=== PATIENT | female | born 1975 | race Caucasian/White ===

== ENCOUNTER 2023-01-03 03:51 | Day surgery (SDC) | payer OTHER ==
[2023-01-01 10:45] VITALS: BMI 27.3
[2023-01-03] MEDS ORDERED: BUPIVACAINE HCL/PF 0.25% (2.5MG/ML) 10 ML VIAL ONE (07:34)
[2023-01-03] MEDS ORDERED: PROPOFOL 20 ML ONE (07:51)
[2023-01-03] MEDS ORDERED: SUCCINYLCHOLINE CHLORIDE 200 MG/10 ML SYRINGE ONE (07:51)
[2023-01-03] MEDS ORDERED: MIDAZOLAM HCL 2 MG/2 ML SINGLE DOSE VIAL ONE (07:51)
[2023-01-03] MEDS ORDERED: BUPIVACAINE HCL/PF 0.25% (2.5MG/ML) 10 ML VIAL IJ ONE ×2 (07:53→08:10)
[2023-01-03] MEDS ORDERED: ceFAZolin SODIUM 1 GM VIAL ONE (08:19)
[2023-01-03] MEDS ORDERED: ceFAZolin 2 GRAM PREMIX BAG IVPB ONE (08:20)
[2023-01-03] MEDS ORDERED: ONDANSETRON 4 MG/2 ML VIAL ONE (08:33)
[2023-01-03] MEDS ORDERED: DEXAMETHASONE SOD PHOSPHATE 4 MG/1 ML VIAL ONE (08:33)
[2023-01-03] MEDS ORDERED: KETOROLAC TROMETHAMINE 30 MG/1 ML VIAL ONE (08:41)
[2023-01-03] MEDS ORDERED: ALBUTEROL SO4 HFA INHALER IH ONE (08:59)
[2023-01-03] MEDS ORDERED: ALBUTEROL SO4 0.083% IH SOL 2.5 MG/3 ML VIAL.NEB. NEB ONE (09:01)
[2023-01-03] MEDS ORDERED: oxyCODONE HCL 5 MG TABLET PO PRN (09:11)
[2023-01-03] MEDS ORDERED: ONDANSETRON 4 MG/2 ML VIAL IVPUSH PRN (09:11)
[2023-01-03] MEDS ORDERED: LACTATED RINGERS SOLUTION 1,000 ML IV SCH (09:15)
[2023-01-03 12:36] VITALS: BP 117/70; PULSE 68; RESP 18; TEMP 98
== END 2023-01-03 12:37 | disposition home or self-care (01) ==
LOC: JASU-SURG 03:51
PROVIDERS: ATTEND Surgery Surgical Oncology
PROC: 0HBT0ZX Excision of Right Breast, Open Approach, Diagnostic (ICD-10-PCS; principal; 2023-01-03 08:00)
DX: N60.21 Fibroadenosis of right breast (principal)
CPT/HCPCS: 36415; 84703; 88307-TC; 94760